=== PATIENT | female | born 1955 | race Caucasian/White ===

== ENCOUNTER 2016-12-25 18:31 | Emergency (ER) | payer OTHER | END 2016-12-25 18:45 | disposition home or self-care (01) | LOC: ER 18:31 | DX: J44.9 Chronic obstructive pulmonary disease, unspecified (principal); J34.89 Other specified disorders of nose and nasal sinuses; R05 Cough; M79.1 Myalgia; F17.210 Nicotine dependence, cigarettes, uncomplicated; Z20.828 Contact with and (suspected) exposure to other viral communicable diseases | CPT/HCPCS: 99282 ==

== ENCOUNTER 2017-01-17 16:48 | Emergency (ER) | payer OTHER | END 2017-01-17 17:09 | disposition home or self-care (01) | LOC: ER 16:48 | DX: J44.9 Chronic obstructive pulmonary disease, unspecified (principal); J11.1 Influenza due to unidentified influenza virus with other respiratory manifestations; F17.210 Nicotine dependence, cigarettes, uncomplicated; Z79.891 Long term (current) use of opiate analgesic; Z79.899 Other long term (current) drug therapy; Z88.2 Allergy status to sulfonamides; Z88.1 Allergy status to other antibiotic agents | CPT/HCPCS: 99282 ==